=== PATIENT | male | born 1985 | race African-American/Black ===

== ENCOUNTER 2017-10-31 23:26 | Emergency (ER) | payer OTHER ==
[2017-10-31 23:31] VITALS: BP 128/76; PULSE 80; RESP 18; TEMP 97.7
--- NOTE | 2017-10-31 23:43 | ED ---
General Adult HPI - General Chief complaint: Dental/Oral Stated complaint: dental Time Seen by Provider: 10/31/17 23:33 Source: patient, RN notes reviewed Mode of arrival: ambulatory Limitations: no limitations - History of Present Illness Initial comments: This is a 32-year-old male who presents to the emergency department with chief complaint of dental pain. Patient states that he has had a fractured tooth in the right lower portion of his mouth for a while now. He states that the pain started today while he was chewing food. Denies any drainage. Denies any radiation of pain to the jaw or neck. Denies fevers or chills, chest pain or shortness of breath, abdominal pain, nausea or vomiting, diarrhea or constipation. Patient does request a work note for tonight. Denies any ALLERGIES. - Related Data Previous Rx's Medication Instructions Recorded Ibuprofen [Motrin] 600 mg PO Q6HR PRN #30 day 10/31/17 Penicillin V Potassium [Pen Vee K] 500 mg PO QID #40 tablet 10/31/17 Allergies Allergy/AdvReac Type Severity Reaction Status Date / Time No Known Allergies Allergy Verified 10/31/17 23:31 Review of Systems ROS Statement: Those systems with pertinent positive or pertinent negative responses have been documented in the HPI. ROS Other: All systems not noted in ROS Statement are negative. Past Medical History Additional Past Medical History / Comment(s): kidney stones History of Any Multi-Drug Resistant Organisms: None Reported Past Surgical History: Orthopedic Surgery Additional Past Surgical History / Comment(s): finger Past Psychological History: No Psychological Hx Reported Smoking Status: Current every day smoker Past Alcohol Use History: Occasional Past Drug Use History: None Reported General Exam - General Exam Comments Initial Comments: General: Awake and alert, well-developed; in no apparent distress. HEENT: Head atraumatic, normocephalic. Pupils are equal, round and reactive to light. Extraocular movements intact. Oropharynx moist without erythema or exudate. Poor dentition throughout with multiple dental caries. Tooth #31 does appear fractured. No masses or areas of fluctuance noted. Gumline is tender on palpation. Neck: Supple. Normal ROM. Cardiovascular: Regular rate and rhythm. No murmurs, rubs or gallops. Chest symmetrical. Respiratory: Lungs clear to auscultation bilaterally. No wheezes, rales or rhonchi. Normal respiratory effort with no use of accessory muscles. Musculoskeletal: Normal ROM, no tenderness bilateral upper and lower extremities. Ambulating normally. Skin: Garrett, warm and dry without rashes or lesions. Neurological: Alert and oriented x3. CN II-XII grossly intact. Speech is fluent and answers are appropriate. No focal neuro deficits. Psychiatric: Normal mood and affect. No overt signs of depression or anxiety noted. Limitations: no limitations Course Vital Signs 10/31/17 23:29 Temperature 97.7 F Pulse Rate 80 Respiratory 18 Rate Blood Pressure 128/76 O2 Sat by Pulse 99 Oximetry Medical Decision Making - Medical Decision Making 32-year-old male presents with chief complaint of dental pain. Tooth #31 is fractured. Gumline is tender on palpation. No fevers or chills. Patient will be started on pen VK as well as ibuprofen. Vital signs are stable and he is in no acute distress. He will be discharged home at this time. Patient is in agreement with plan and voices understanding. All questions were answered. Disposition Clinical Impression: Toothache Disposition: HOME SELF-CARE Condition: Good Instructions: Toothache (ED) Additional Instructions: Please take medications as prescribed. Please follow up with primary care provider within 1-2 days. Return to emergency department if symptoms should worsen or any concerns arise. Please follow up with the [facility] dental clinic. [facility] [employer] [place] [address]. Phone number for new patients or [phone] for existing patients. Prescriptions: Ibuprofen [Motrin] 600 mg PO Q6HR PRN #30 day PRN Reason: Pain Penicillin V Potassium [Pen Vee K] 500 mg PO QID #40 tablet Referrals: None,Stated [Primary Care Provider] - 1-2 days Time of Disposition: 23:39
== END 2017-10-31 23:58 | disposition home or self-care (01) ==
LOC: EC 23:26
DX: S02.5XXA Fracture of tooth (traumatic), initial encounter for closed fracture (principal); K02.9 Dental caries, unspecified; F17.200 Nicotine dependence, unspecified, uncomplicated
CPT/HCPCS: 99282

== ENCOUNTER 2018-07-27 12:05 | Emergency (ER) | payer OTHER ==
--- NOTE | 2018-07-27 13:07 | XR ---
EXAMINATION TYPE: XR chest 2V DATE OF EXAM: 07/27/2018 COMPARISON: None INDICATION: Pain hemoptysis TECHNIQUE: Frontal and lateral views of the chest are obtained. FINDINGS: The heart size is normal. The pulmonary vasculature is normal. The lungs are clear. Subtle blunting of the costophrenic angles is not entirely excluded more likely on the basis of atelectasis. IMPRESSION: 1. Minimal blunting of the costophrenic angles could indicate atelectasis. 2. No acute pulmonary process is otherwise apparent.
[2018-07-27] MEDS ORDERED: ACETAMINOPHEN TAB 500 MG TAB PO STA (13:22)
--- NOTE | 2018-07-27 13:42 | ED ---
Fever HPI - General Chief Complaint: Fever Stated Complaint: Coughing up blood Time Seen by Provider: 07/27/18 12:49 Source: patient, RN notes reviewed, old records reviewed Mode of arrival: ambulatory Limitations: no limitations - History of Present Illness Initial Comments: Patient is a 33-year-old male presents emergency department today with chief complaint of fever for the past 4 days. He also reports she's had a productive cough. Patient reports he was concerned today because that is mucus started to be somewhat blood-tinged. Patient states that he had some NyQuil last night. No recent Motrin or Tylenol. Patient arrived to the emergency department with a fever 100.2. He states he's had a mild sore throat. He denies any vomiting or abdominal pain. He denies chest pain. He reports he is generally healthy. - Related Data Previous Rx's Medication Instructions Recorded Ibuprofen [Motrin] 600 mg PO Q6HR PRN #20 tab 07/27/18 Oseltamivir [Tamiflu] 75 mg PO Q12HR #10 cap 07/27/18 Allergies Allergy/AdvReac Type Severity Reaction Status Date / Time No Known Allergies Allergy Verified 07/27/18 13:13 Review of Systems ROS Statement: Those systems with pertinent positive or pertinent negative responses have been documented in the HPI. ROS Other: All systems not noted in ROS Statement are negative. Past Medical History Additional Past Medical History / Comment(s): kidney stones History of Any Multi-Drug Resistant Organisms: None Reported Past Surgical History: Orthopedic Surgery Additional Past Surgical History / Comment(s): finger Past Psychological History: No Psychological Hx Reported Smoking Status: Current every day smoker Past Alcohol Use History: Occasional Past Drug Use History: None Reported General Exam - General Exam Comments Initial Comments: Pleasant 33-year-old male. Alert and oriented 3. No acute distress. Limitations: no limitations General appearance: alert, in no apparent distress Head exam: Present: atraumatic, normocephalic, normal inspection Eye exam: Present: normal appearance, PERRL, EOMI. Absent: scleral icterus, conjunctival injection, periorbital swelling ENT exam: Present: normal exam, mucous membranes moist Neck exam: Present: normal inspection. Absent: tenderness, meningismus, lymphadenopathy Respiratory exam: Present: normal lung sounds bilaterally. Absent: respiratory distress, wheezes, rales, rhonchi, stridor Cardiovascular Exam: Present: regular rate, normal rhythm, normal heart sounds. Absent: systolic murmur, diastolic murmur, rubs, gallop, clicks GI/Abdominal exam: Present: soft, normal bowel sounds. Absent: distended, tenderness, guarding, rebound, rigid Extremities exam: Present: normal inspection, full ROM, normal capillary refill. Absent: tenderness, pedal edema, joint swelling, calf tenderness Back exam: Present: normal inspection Neurological exam: Present: alert, oriented X3, CN II-XII intact Psychiatric exam: Present: normal affect, normal mood Skin exam: Present: warm, dry, intact, normal color. Absent: rash Course Vital Signs 07/27/18 12:06 Temperature 100.2 F H Pulse Rate 95 Respiratory 20 Rate Blood Pressure 119/84 O2 Sat by Pulse 98 Oximetry Medical Decision Making - Medical Decision Making 33-year-old male presents emergency department his low-grade fever 3 days productive cough. Patient reports that he had some blood-tinged sputum with his cough. Patient vital signs showed slight fever. He was given Tylenol. Patient is positive for influenza B. Chest x-ray was completed. There is some evidence of blunting of the costophrenic angles consistent with atelectasis. Patient's lungs are clear to auscultation. He's had no significant coughing episodes or hemoptysis noted emergency department. Low clinical suspicion for PE. Patient will be discharged at this time with prescription for Tamiflu, Motrin Tylenol. Discussed using [id number] decongestants as well. - Lab Data Lab Results 07/27/18 Range/Units 12:56 Influenza Type A RNA Not Detected (Not Detectd) Influenza Type B (PCR) Detected H (Not Detectd) - Radiology Data Radiology results: report reviewed Minimal blunting of the costophrenic angles that could indicate atelectasis. No acute process otherwise apparent. Chest x-ray shows minimal blunting of the costophrenic angles which could indicate atelectasis. No acute pulmonary processes otherwise evident. Disposition Clinical Impression: Influenza B Disposition: HOME SELF-CARE Condition: Good Instructions: Fever in Adults (ED), Influenza (ED) Additional Instructions: Alternate Motrin and Tylenol. Follow-up with primary care physician. Take Tamiflu and Motrin Tylenol. Return to emergency department if any alarming signs or symptoms occur. Use [id number] decongestant such as NyQuil and Mucinex. Prescriptions: Ibuprofen [Motrin] 600 mg PO Q6HR PRN #20 tab PRN Reason: Pain Oseltamivir [Tamiflu] 75 mg PO Q12HR #10 cap Is patient prescribed a controlled substance at d/c from ED?: No Referrals: None,Stated [Primary Care Provider] - 1-2 days Wai Chowdhury MD [REFERRING] - 1-2 days Time of Disposition: 13:39
[2018-07-27 14:16] VITALS: BP 128/88; PULSE 80; RESP 18; TEMP 98.7
== END 2018-07-27 14:16 | disposition home or self-care (01) ==
LOC: EC 12:05
DX: J10.1 Influenza due to other identified influenza virus with other respiratory manifestations (principal); R91.8 Other nonspecific abnormal finding of lung field; F17.200 Nicotine dependence, unspecified, uncomplicated
CPT/HCPCS: 71046; 87502; 99284